=== PATIENT | female | born 1940 | race Caucasian/White ===

== ENCOUNTER 2023-02-15 01:13 | Inpatient (IN) | payer MEDICAID, MEDICARE ==
[~2023-02-15] VITALS: Ht 170.2 cm; Wt 63.5 kg
[~2023-02-15 01:13] MED LIST: ACET-73 PO; ALPR0.25 PO; ASA81 PO; DIF100 PO; DOCU-144 PO; ERGO1250 PO; GLUCOSAMINE PO; HYDR12.585 PO; LEVE500T9 PO; LISI40TA13 PO; MELA3TAB41 PO; MEMA5TAB PO; METF-379 PO; NOR10 PO; POLY17PO4 PO; SENN8.6T19 PO
[2023-02-15 01:18] VITALS: BP_SYST 183; PULSE 90; RESP 20; TEMP 98.2; O2SAT 97
[2023-02-15] MEDS ORDERED: levETIRAcetam 1,500 MG in NS 85 ML IV ONE (01:30)
[2023-02-15] MEDS ORDERED: NACL 0.9% 1,000 ML IV ONE (02:15)
[2023-02-15 02:27] LABS: BILIRUBIN,URINE NEGATIVE (NEGATIVE); CLARITY/URINE SL CLOUDY (CLEAR); COLOR,URINE YELLOW (YELLOW); GLUCOSE,URINE NEGATIVE (NEGATIVE); KETONES,URINE NEGATIVE (NEGATIVE); LEUKOCYTE ESTERASE ,URINE TRACE (NEGATIVE); NITRITE, URINE POSITIVE (NEGATIVE); PROTEIN URINE NEGATIVE (NEGATIVE); UROBILINOGEN,URINE 0.2 (0.2-1.0)
[2023-02-15 02:29] LABS: ALANINE AMINOTRANSFERASE 22 U/L (12-78); ALBUMIN 2.5 g/dL (3.4-4.8); ASPARTATE AMINOTRANSFERASE 11 U/L (10-37); TOTAL BILIRUBIN 0.3 mg/dL (0.0-1.0); TOTAL PROTEIN, SERUM 7.2 g/dL (6.4-8.3)
[2023-02-15 02:31] LABS: SALICYLATE 1 mg/dL (3-30)
[2023-02-15 02:35] LABS: BASOPHILS % (AUTO) 0.5 % (0.0-2.0); EOSINOPHILS # (AUTO) 0.1 K/uL (0.0-0.4); EOSINOPHILS % (AUTO) 1.5 % (0.0-4.0); HEMATOCRIT 31.3 % (36-48); HEMOGLOBIN 10.1 g/dL (12.0-16.0); LYMPHOCYTES % (AUTO) 16.4 % (20.5-51.5); MEAN CORPUSCULAR HEMOGLOBIN 26 pg (27-31); MEAN CORPUSCULAR HGB CONC 32 % (32-36); MEAN CORPUSCULAR VOLUME 79 fL (79.0-98.0); MONOCYTES # (AUTO) 0.4 K/uL (0.0-1.0); MONOCYTES % (AUTO) 6.4 % (1.7-9.3); NEUTROPHILS # (AUTO) 4.6 K/uL (1.8-7.7); NEUTROPHILS % (AUTO) 75.2 % (40.0-70.0); PLATELET COUNT (AUTO) 167 K/uL (130-430); RED BLOOD CELL COUNT(AUTO) 3.94 MIL/uL (4.2-6.2); RED CELL DISTRIBUTION WIDTH 18.6 % (9.0-15.0); WHITE BLOOD COUNT (AUTO) 6.1 K/uL (4.8-10.8)
[2023-02-15 02:40] LABS: ANION GAP 9 (5-15); CALCIUM 8.5 mg/dL (8.4-11.0); CARBON DIOXIDE 25 mmol/L (23-29); CHLORIDE 107 mmol/L (98-107); CREATININE 0.49 mg/dL (0.55-1.30); GLUCOSE 74 mg/dL (74-106); POTASSIUM 3.7 mmol/L (3.5-5.1); SODIUM SERUM 141 mmol/L (136-145); UREA NITROGEN, BLOOD 22 mg/dL (8-21)
[2023-02-15 02:41] LABS: BLOOD, URINE TRACE (NEGATIVE)
[2023-02-15] MEDS ORDERED: cefTRIAXone 1 GM IVPB PREMIX 50 ML IV ONE (03:00)
[2023-02-15] MEDS ORDERED: LORazepam 2 MG/ML VIAL IVP ONE (03:00)
[2023-02-15 03:04] LABS: BACTERIA,URINE MANY /HPF (None Seen)
[2023-02-15 03:36] LABS: ACETAMINOPHEN < 1 ug/mL (1-30)
[2023-02-15] MEDS ORDERED: LORazepam 2 MG/ML VIAL IVP PRN (06:15)
[2023-02-15] MEDS ORDERED: ACETAMINOPHEN 500 MG TABLET PO PRN (06:45)
[2023-02-15] MEDS: NACL 0.9% 1,000 ML IV SCH ×2 (06:46→21:11)
[2023-02-15] MEDS ORDERED: GLUCOSAMINE 1000 MG PO SCH (09:00)
[2023-02-15] MEDS: cefTRIAXone 1 GM in D5W 50 ML IV SCH (09:49)
[2023-02-15] MEDS: HYDROCHLOROTHIAZIDE 12.5 MG CAPSULE (HCTZ) PO SCH (09:52)
[2023-02-15] MEDS: levETIRAcetam 500 MG TABLET PO SCH ×2 (09:52→21:10)
[2023-02-15] MEDS: metFORMIN HCL 500 MG TABLET PO SCH ×2 (09:53→21:10)
[2023-02-15] MEDS: ASPIRIN 81 MG TAB.CHEW PO SCH (09:53)
[2023-02-15] MEDS: MEMANTINE HCL 5 MG TABLET PO SCH (09:54)
[2023-02-15] MEDS: DOCUSATE SODIUM 100 MG CAPSULE PO SCH ×2 (09:54→21:11)
[2023-02-15] MEDS: amLODIPine BESYLATE 10 MG TABLET PO SCH (09:56)
[2023-02-15] MEDS: ALPRAZolam 0.25 MG TABLET PO SCH ×2 (10:01→21:11)
[2023-02-15 19:46] VITALS: BP_SYST 122; PULSE 68; RESP 16; TEMP 97.8
[2023-02-15 19:49] VITALS: O2SAT 98
[2023-02-15 20:35] VITALS: BP_SYST 163; PULSE 94; RESP 18; TEMP 97.5; O2SAT 94
[2023-02-15] MEDS: MELATONIN 3 MG TABLET PO SCH (21:10)
[2023-02-15] MEDS: SENNOSIDES 8.6 MG TABLET PO SCH (21:10)
[2023-02-15] MEDS: lisinopriL 20 MG TABLET PO SCH (21:10)
[2023-02-16 00:49] VITALS: BP_SYST 124; PULSE 93; RESP 18; TEMP 97.5; O2SAT 99
[2023-02-16 05:19] LABS: BASOPHILS % (AUTO) 0.2 % (0.0-2.0); EOSINOPHILS % (AUTO) 0.5 % (0.0-4.0); HEMATOCRIT 28.3 % (36-48); LYMPHOCYTES % (AUTO) 9.8 % (20.5-51.5); MEAN CORPUSCULAR HEMOGLOBIN 25 pg (27-31); MEAN CORPUSCULAR HGB CONC 32 % (32-36); MEAN CORPUSCULAR VOLUME 79 fL (79.0-98.0); MONOCYTES # (AUTO) 0.4 K/uL (0.0-1.0); MONOCYTES % (AUTO) 3.6 % (1.7-9.3); NEUTROPHILS # (AUTO) 8.8 K/uL (1.8-7.7); NEUTROPHILS % (AUTO) 85.9 % (40.0-70.0); PLATELET COUNT (AUTO) 165 K/uL (130-430); RED BLOOD CELL COUNT(AUTO) 3.56 MIL/uL (4.2-6.2); RED CELL DISTRIBUTION WIDTH 18.5 % (9.0-15.0); WHITE BLOOD COUNT (AUTO) 10.3 K/uL (4.8-10.8)
[2023-02-16 05:40] LABS: ALANINE AMINOTRANSFERASE 18 U/L (12-78); ALBUMIN 2.3 g/dL (3.4-4.8); ANION GAP 7 (5-15); ASPARTATE AMINOTRANSFERASE 10 U/L (10-37); CALCIUM 8.2 mg/dL (8.4-11.0); CARBON DIOXIDE 23 mmol/L (23-29); CHLORIDE 98 mmol/L (98-107); CREATININE 0.81 mg/dL (0.55-1.30); GLUCOSE 64 mg/dL (74-106); POTASSIUM 4.3 mmol/L (3.5-5.1); SODIUM SERUM 128 mmol/L (136-145); TOTAL BILIRUBIN 0.3 mg/dL (0.0-1.0); TOTAL PROTEIN, SERUM 6.7 g/dL (6.4-8.3); UREA NITROGEN, BLOOD 28 mg/dL (8-21)
[2023-02-16 07:30] VITALS: BP_SYST 132; PULSE 94; RESP 18; TEMP 97.8
[2023-02-16] MEDS: cefTRIAXone 1 GM in D5W 50 ML IV SCH (09:07)
[2023-02-16] MEDS: POLYETHYLENE GLYCOL 3350, 17 GM/ POWD.PACK PO SCH ×2 (09:08→09:25)
[2023-02-16] MEDS: ASPIRIN 81 MG TAB.CHEW PO SCH (09:10)
[2023-02-16] MEDS: ALPRAZolam 0.25 MG TABLET PO SCH ×2 (09:10→21:56)
[2023-02-16] MEDS: DOCUSATE SODIUM 100 MG CAPSULE PO SCH ×2 (09:11→21:55)
[2023-02-16] MEDS: levETIRAcetam 500 MG TABLET PO SCH ×2 (09:11→21:56)
[2023-02-16] MEDS: amLODIPine BESYLATE 10 MG TABLET PO SCH (09:12)
[2023-02-16] MEDS: HYDROCHLOROTHIAZIDE 12.5 MG CAPSULE (HCTZ) PO SCH (09:13)
[2023-02-16] MEDS: metFORMIN HCL 500 MG TABLET PO SCH ×2 (09:13→18:51)
[2023-02-16] MEDS: MEMANTINE HCL 5 MG TABLET PO SCH (09:13)
[2023-02-16] MEDS: NACL 0.9% 1,000 ML IV SCH (09:23)
[2023-02-16 11:30] VITALS: BP_SYST 123; PULSE 88; RESP 17; TEMP 98.7; O2SAT 97
[2023-02-16] MEDS: ACETAMINOPHEN 500 MG TABLET PO PRN (14:46)
[2023-02-16 17:30] VITALS: BP_SYST 107; PULSE 89; RESP 17; TEMP 98.8; O2SAT 98
[2023-02-16 20:00] VITALS: BP_SYST 120; PULSE 90; RESP 16; TEMP 99; O2SAT 98
[2023-02-16] MEDS ORDERED: INSULIN REGULAR, HUMAN 100 UNITS/ML, 3 ML VIAL (humuLIN R) SUBCUT PRN (20:30)
[2023-02-16] MEDS: lisinopriL 20 MG TABLET PO SCH (21:55)
[2023-02-16] MEDS: SENNOSIDES 8.6 MG TABLET PO SCH (21:56)
[2023-02-16] MEDS: MELATONIN 3 MG TABLET PO SCH (21:58)
[2023-02-17] VITALS (7 sets, daily range): BP systolic 105–138; PULSE 71–94; RESP 16–22; TEMP 98–99.5; O2SAT 95–97
[2023-02-17] MEDS: NACL 0.9% 1,000 ML IV SCH (00:31)
[2023-02-17 05:05] LABS: BASOPHILS % (AUTO) 0.2 % (0.0-2.0); EOSINOPHILS # (AUTO) 0.1 K/uL (0.0-0.4); EOSINOPHILS % (AUTO) 1.1 % (0.0-4.0); HEMATOCRIT 27.3 % (36-48); HEMOGLOBIN 8.7 g/dL (12.0-16.0); LYMPHOCYTES # (AUTO) 1.3 K/uL (1.0-5.5); LYMPHOCYTES % (AUTO) 20.2 % (20.5-51.5); MEAN CORPUSCULAR HEMOGLOBIN 25 pg (27-31); MEAN CORPUSCULAR HGB CONC 32 % (32-36); MEAN CORPUSCULAR VOLUME 79 fL (79.0-98.0); MONOCYTES # (AUTO) 0.6 K/uL (0.0-1.0); MONOCYTES % (AUTO) 8.8 % (1.7-9.3); NEUTROPHILS # (AUTO) 4.5 K/uL (1.8-7.7); NEUTROPHILS % (AUTO) 69.7 % (40.0-70.0); PLATELET COUNT (AUTO) 175 K/uL (130-430); RED BLOOD CELL COUNT(AUTO) 3.47 MIL/uL (4.2-6.2); RED CELL DISTRIBUTION WIDTH 18.6 % (9.0-15.0); WHITE BLOOD COUNT (AUTO) 6.4 K/uL (4.8-10.8)
[2023-02-17 05:18] LABS: ANION GAP 10 (5-15); CALCIUM 8.2 mg/dL (8.4-11.0); CARBON DIOXIDE 22 mmol/L (23-29); CHLORIDE 108 mmol/L (98-107); GLUCOSE 73 mg/dL (74-106); POTASSIUM 4.1 mmol/L (3.5-5.1); SODIUM SERUM 140 mmol/L (136-145); UREA NITROGEN, BLOOD 29 mg/dL (8-21)
[2023-02-17] MEDS: ACETAMINOPHEN 500 MG TABLET PO PRN ×2 (06:15→15:02)
[2023-02-17] MEDS: ALPRAZolam 0.25 MG TABLET PO SCH ×2 (09:57→21:59)
[2023-02-17] MEDS: ASPIRIN 81 MG TAB.CHEW PO SCH (09:58)
[2023-02-17] MEDS: MEMANTINE HCL 5 MG TABLET PO SCH (09:59)
[2023-02-17] MEDS: levETIRAcetam 500 MG TABLET PO SCH ×2 (09:59→21:59)
[2023-02-17] MEDS: amLODIPine BESYLATE 10 MG TABLET PO SCH (10:00)
[2023-02-17] MEDS: DOCUSATE SODIUM 100 MG CAPSULE PO SCH ×2 (10:00→21:58)
[2023-02-17] MEDS: metFORMIN HCL 500 MG TABLET PO SCH ×2 (10:00→18:13)
[2023-02-17] MEDS: POLYETHYLENE GLYCOL 3350, 17 GM/ POWD.PACK PO SCH (10:01)
[2023-02-17] MEDS: HYDROCHLOROTHIAZIDE 12.5 MG CAPSULE (HCTZ) PO SCH (10:01)
[2023-02-17] MEDS: D5/0.45 NS 1,000 ML IV SCH ×2 (10:02→22:18)
[2023-02-17] MEDS: cefTRIAXone 1 GM in D5W 50 ML IV SCH (10:22)
[2023-02-17] MEDS: SENNOSIDES 8.6 MG TABLET PO SCH (21:59)
[2023-02-17] MEDS: lisinopriL 20 MG TABLET PO SCH (21:59)
[2023-02-17] MEDS: MELATONIN 3 MG TABLET PO SCH (22:00)
[2023-02-18] MEDS: ACETAMINOPHEN 500 MG TABLET PO PRN ×2 (04:25→05:31)
[2023-02-18 08:47] VITALS: BP_SYST 106; PULSE 87; RESP 16; TEMP 98.1; O2SAT 97
[2023-02-18] MEDS: cefTRIAXone 1 GM in D5W 50 ML IV SCH (09:20)
[2023-02-18] MEDS: ASPIRIN 81 MG TAB.CHEW PO SCH (09:20)
[2023-02-18] MEDS: metFORMIN HCL 500 MG TABLET PO SCH ×2 (09:21→19:05)
[2023-02-18] MEDS: DOCUSATE SODIUM 100 MG CAPSULE PO SCH ×2 (09:21→20:53)
[2023-02-18] MEDS: MEMANTINE HCL 5 MG TABLET PO SCH (09:21)
[2023-02-18] MEDS: HYDROCHLOROTHIAZIDE 12.5 MG CAPSULE (HCTZ) PO SCH (09:21)
[2023-02-18] MEDS: amLODIPine BESYLATE 10 MG TABLET PO SCH (09:22)
[2023-02-18] MEDS: levETIRAcetam 500 MG TABLET PO SCH ×2 (09:22→20:54)
[2023-02-18] MEDS: POLYETHYLENE GLYCOL 3350, 17 GM/ POWD.PACK PO SCH (09:22)
[2023-02-18] MEDS: ALPRAZolam 0.25 MG TABLET PO SCH ×2 (09:22→20:55)
[2023-02-18] MEDS: D5/0.45 NS 1,000 ML IV SCH ×2 (15:20→23:15)
[2023-02-18 19:00] VITALS: BP_SYST 110; PULSE 85; RESP 16; TEMP 98.2; O2SAT 98
[2023-02-18 20:00] VITALS: BP_SYST 110; PULSE 85; RESP 16; TEMP 99.2; O2SAT 98
[2023-02-18] MEDS: MELATONIN 3 MG TABLET PO SCH (20:55)
[2023-02-18] MEDS: SENNOSIDES 8.6 MG TABLET PO SCH (20:55)
[2023-02-18] MEDS: lisinopriL 20 MG TABLET PO SCH (20:55)
[2023-02-18 23:28] VITALS: BP_SYST 103; PULSE 83; RESP 17; TEMP 97.8; O2SAT 95
[2023-02-19] MEDS: D5/0.45 NS 1,000 ML IV SCH ×2 (05:55→20:10)
[2023-02-19] MEDS ORDERED: ERGOCALCIFEROL 8000 UNITS/ML ORAL SOLUTION, 60 ML BOTTLE PO SCH (06:00)
[2023-02-19 06:44] LABS: BASOPHILS % (AUTO) 0.2 % (0.0-2.0); EOSINOPHILS # (AUTO) 0.1 K/uL (0.0-0.4); EOSINOPHILS % (AUTO) 1.7 % (0.0-4.0); HEMATOCRIT 26.5 % (36-48); HEMOGLOBIN 8.5 g/dL (12.0-16.0); LYMPHOCYTES # (AUTO) 1.2 K/uL (1.0-5.5); LYMPHOCYTES % (AUTO) 15.5 % (20.5-51.5); MEAN CORPUSCULAR HEMOGLOBIN 26 pg (27-31); MEAN CORPUSCULAR HGB CONC 32 % (32-36); MEAN CORPUSCULAR VOLUME 80 fL (79.0-98.0); MONOCYTES # (AUTO) 0.7 K/uL (0.0-1.0); MONOCYTES % (AUTO) 9.4 % (1.7-9.3); NEUTROPHILS # (AUTO) 5.6 K/uL (1.8-7.7); NEUTROPHILS % (AUTO) 73.2 % (40.0-70.0); PLATELET COUNT (AUTO) 233 K/uL (130-430); RED BLOOD CELL COUNT(AUTO) 3.33 MIL/uL (4.2-6.2); RED CELL DISTRIBUTION WIDTH 17.9 % (9.0-15.0); WHITE BLOOD COUNT (AUTO) 7.6 K/uL (4.8-10.8)
[2023-02-19 07:53] LABS: ANION GAP 7 (5-15); CALCIUM 9.6 mg/dL (8.4-11.0); CARBON DIOXIDE 24 mmol/L (23-29); CHLORIDE 108 mmol/L (98-107); CREATININE 0.57 mg/dL (0.55-1.30); GLUCOSE 97 mg/dL (74-106); SODIUM SERUM 139 mmol/L (136-145); UREA NITROGEN, BLOOD 19 mg/dL (8-21)
[2023-02-19 08:00] VITALS: O2SAT 97
[2023-02-19 08:05] VITALS: BP_SYST 135; PULSE 86; RESP 16; TEMP 97.2; O2SAT 97
[2023-02-19] MEDS: ASPIRIN 81 MG TAB.CHEW PO SCH (08:58)
[2023-02-19] MEDS: amLODIPine BESYLATE 10 MG TABLET PO SCH (08:59)
[2023-02-19] MEDS: DOCUSATE SODIUM 100 MG CAPSULE PO SCH ×2 (09:00→20:53)
[2023-02-19] MEDS: MEMANTINE HCL 5 MG TABLET PO SCH (09:00)
[2023-02-19] MEDS: ALPRAZolam 0.25 MG TABLET PO SCH ×2 (09:00→20:53)
[2023-02-19] MEDS: levETIRAcetam 500 MG TABLET PO SCH ×2 (09:00→20:52)
[2023-02-19] MEDS: metFORMIN HCL 500 MG TABLET PO SCH ×2 (09:00→17:21)
[2023-02-19] MEDS: HYDROCHLOROTHIAZIDE 12.5 MG CAPSULE (HCTZ) PO SCH (09:00)
[2023-02-19] MEDS: POLYETHYLENE GLYCOL 3350, 17 GM/ POWD.PACK PO SCH (09:09)
[2023-02-19] MEDS: cefTRIAXone 1 GM in D5W 50 ML IV SCH (09:09)
[2023-02-19 11:58] LABS: TOTAL IRON BIND. CAPACITY 243 ug/dL (250-450)
[2023-02-19 12:00] VITALS: BP_SYST 108; PULSE 80; RESP 16; TEMP 98.5; O2SAT 97
[2023-02-19] MEDS ORDERED: BALSAM PERU/CASTOR OIL 56.7 GM OINT...G. TP ONE (14:00)
[2023-02-19 16:00] VITALS: BP_SYST 137; PULSE 90; RESP 16; TEMP 98.4; O2SAT 97
[2023-02-19] MEDS: MENTHOL/ZINC OXIDE 113 GM OINT. TP SCH ×2 (17:22→20:55)
[2023-02-19 20:00] VITALS: BP_SYST 128; PULSE 86; RESP 19; TEMP 98.6; O2SAT 99
[2023-02-19] MEDS: SENNOSIDES 8.6 MG TABLET PO SCH (20:52)
[2023-02-19] MEDS: MELATONIN 3 MG TABLET PO SCH (20:52)
[2023-02-19] MEDS: lisinopriL 20 MG TABLET PO SCH (20:53)
[2023-02-19 22:00] VITALS: O2SAT 99
[2023-02-20 00:38] VITALS: BP_SYST 104; PULSE 75; RESP 18; TEMP 97; O2SAT 98
[2023-02-20 08:00] VITALS: BP_SYST 117; PULSE 76; RESP 17; TEMP 98.6; O2SAT 97
[2023-02-20 08:06] LABS: FOLATE (FOLIC ACID) 9.1 ng/mL (>3.0)
[2023-02-20] MEDS ORDERED: BALSAM PERU/CASTOR OIL 56.7 GM OINT...G. TP SCH (09:00)
[2023-02-20] MEDS: POLYETHYLENE GLYCOL 3350, 17 GM/ POWD.PACK PO SCH (09:30)
[2023-02-20] MEDS: ASPIRIN 81 MG TAB.CHEW PO SCH (09:30)
[2023-02-20] MEDS: ALPRAZolam 0.25 MG TABLET PO SCH (09:30)
[2023-02-20] MEDS: levETIRAcetam 500 MG TABLET PO SCH (09:31)
[2023-02-20] MEDS: metFORMIN HCL 500 MG TABLET PO SCH (09:31)
[2023-02-20] MEDS: MEMANTINE HCL 5 MG TABLET PO SCH (09:31)
[2023-02-20] MEDS: DOCUSATE SODIUM 100 MG CAPSULE PO SCH (09:31)
[2023-02-20] MEDS: cefTRIAXone 1 GM in D5W 50 ML IV SCH (09:32)
[2023-02-20] MEDS: HYDROCHLOROTHIAZIDE 12.5 MG CAPSULE (HCTZ) PO SCH (09:32)
[2023-02-20] MEDS: amLODIPine BESYLATE 10 MG TABLET PO SCH (09:33)
[2023-02-20] MEDS: MENTHOL/ZINC OXIDE 113 GM OINT. TP SCH ×2 (09:35→12:08)
[2023-02-20 12:00] VITALS: BP_SYST 119; PULSE 74; RESP 15; TEMP 97.6; O2SAT 99
[2023-02-20 16:00] VITALS: BP_SYST 111; PULSE 81; RESP 16; TEMP 98.1; O2SAT 98
[2023-02-20 16:42] VITALS: BP_SYST 119; PULSE 74; RESP 16; TEMP 97.6; O2SAT 99
[2023-02-20 20:00] VITALS: BP_SYST 121; PULSE 68; RESP 18; TEMP 98.8; O2SAT 95
[2023-02-20] MEDS ORDERED: ASCORBIC ACID 500 MG TABLET PO SCH (21:00)
== END 2023-02-20 20:16 | DRG 53 ==
LOC: SED 01:13 → STU 05:48 → SMU 02-20 14:02
PROVIDERS: ADMIT Family Medicine; ATTEND Family Medicine
PROC: 4A00X4Z Measurement of Central Nervous Electrical Activity, External Approach (ICD-10-PCS; principal; 2023-02-19)
DX: G40.909 Epilepsy, unspecified, not intractable, without status epilepticus (principal); L89.154 Pressure ulcer of sacral region, stage 4; E44.0 Moderate protein-calorie malnutrition; F03.90 Unspecified dementia, unspecified severity, without behavioral disturbance, psychotic disturbance, mood disturbance, and anxiety; R78.81 Bacteremia; N39.0 Urinary tract infection, site not specified; E11.9 Type 2 diabetes mellitus without complications; E78.5 Hyperlipidemia, unspecified; I10 Essential (primary) hypertension; Z79.82 Long term (current) use of aspirin; Z79.899 Other long term (current) drug therapy; Z79.84 Long term (current) use of oral hypoglycemic drugs; Z88.1 Allergy status to other antibiotic agents; Z86.73 Personal history of transient ischemic attack (TIA), and cerebral infarction without residual deficits; Z68.21 Body mass index [BMI] 21.0-21.9, adult
CPT/HCPCS: 36415; 70450-TC; 71045; 76376; 80048; 80053; 81000; 82607; 82728; 82746; 82962; 83540; 83550; 83605; 83735; 84484; 85025; 87040; 87081; 87086; 93005; 95816; 96361; 96365; 96375; 99285; G0378; G0480; G0481; J0696; J1815; J1953; J2060; J7060